=== PATIENT | male | born 1955 | race Caucasian/White ===

== ENCOUNTER 2018-08-25 10:19 | Inpatient (IN) | payer OTHER ==
[~2018-08-25 10:19] MED LIST: LIDOCAINE 2% (SDV) 5 ML INJ; SEVOFLURANE 15 MIN
[2018-08-25] MEDS ORDERED: PROPOFOL 20 ML (12:30)
[2018-08-25] MEDS ORDERED: ROCURONIUM 50 MG INJ (12:31)
[2018-08-25] MEDS ORDERED: NEOSTIGMINE 10 MG INJ (14:33)
[2018-08-25] MEDS ORDERED: GLYCOPYRROLATE 0.4 MG INJ (14:33)
[2018-08-25] MEDS ORDERED: CEFAZOLIN 1 GM INJ (14:34)
[2018-08-25] MEDS ORDERED: DEXTROSE 5%-0.45% NACL 1,000 ML IV (14:38)
[2018-08-25] MEDS ORDERED: hydrALAzine 20 MG INJ IV (15:00)
[2018-08-25] MEDS ORDERED: FENTAnyl 50 MCG/ML VIAL IV ×3 (15:00)
[2018-08-25] MEDS ORDERED: METOCLOPRAMIDE 10 MG INJ IV (15:00)
[2018-08-25] MEDS ORDERED: ALBUTEROL 0.083% (NEB) 2.5 MG/3 ML AMP HHN (15:00)
[2018-08-25] MEDS ORDERED: EPHEDrine SULFATE 50 MG/5 ML SYG IV (15:00)
[2018-08-25] MEDS ORDERED: ONDANSETRON 4 MG INJ IV (15:00)
[2018-08-25] MEDS ORDERED: LABETALOL HCL 20MG INJ IV (15:00)
[2018-08-25] MEDS ORDERED: OXYCODONE/ACETAMINOPHEN (5/325) TAB PO ×2 (15:00)
[2018-08-25] MEDS ORDERED: MEPERIDINE 25 MG INJ IV (15:00)
[2018-08-25] MEDS ORDERED: DIPHENHYDRAMINE 50 MG INJ IV (15:00)
[2018-08-25] MEDS ORDERED: HYDROmorphONE 1 MG/5 ML IV SYRINGE IV ×3 (15:00)
[2018-08-25] MEDS ORDERED: NACL 0.9% 3 ML SYG IV (15:30)
[2018-08-25] MEDS ORDERED: HYDROCODONE/APAP (5/325) TAB PO (15:30)
[2018-08-25] MEDS ORDERED: GLUCOSE GEL 15 GRAM TUBE PO ×2 (16:00)
[2018-08-25] MEDS ORDERED: GLUCOSE GEL 15 GRAM TUBE BUCCAL (16:00)
[2018-08-25] MEDS ORDERED: GLUCAGON 1 MG INJ IM (16:00)
[2018-08-25] MEDS ORDERED: DEXTROSE 50% 50 ML SYRINGE IV ×2 (16:00)
[2018-08-25] MEDS: ACCU-CHEK XX ×2 (17:52→21:00)
[2018-08-25] MEDS: metFORMIN 500 MG TAB PO (17:52)
[2018-08-25] MEDS: ATORVASTATIN 20 MG TAB PO (20:12)
[2018-08-26 05:26] LABS: ADD MAN DIFF? NO; BASOPHILS % 0.3 % (0.0-2.0); EOSINOPHILS # 0.2 10^3/ul (0.0-0.5); EOSINOPHILS % 1.9 % (0.0-7.0); HEMATOCRIT 42.6 % (42.0-52.0); HEMOGLOBIN 14.1 g/dl (14.0-18.0); LYMPHOCYTES # 1.6 10^3/ul (0.8-2.9); LYMPHOCYTES % 15.1 % (15.0-51.0); MEAN CORPUSCULAR HGB CONC 33.1 g/dl (32.0-37.0); MEAN CORPUSCULAR VOLUME 90.6 fl (82.0-101.0); MEAN PLATELET VOLUME 11.1 fl (7.4-10.4); MONOCYTE # 0.7 10^3/ul (0.3-0.9); MONOCYTES % 6.8 % (0.0-11.0); NEUTROPHIL # 7.9 10^3/ul (1.6-7.5); NEUTROPHILS % 75.7 % (39.0-77.0); PLATELET COUNT 160 10^3/UL (140-415)
[2018-08-26 05:26] LABS: WHITE BLOOD COUNT 10.5 10^3/ul (4.8-10.8)
[2018-08-26 05:50] LABS: HEMOGLOBIN A1C 7.3 % (0-5.9)
[2018-08-26 06:06] LABS: ALANINE AMINOTRANSFERASE 27 IU/L (13-69); ALBUMIN 3.6 g/dl (3.3-4.9); ALBUMIN/GLOBULIN RATIO 1.12; ALKALINE PHOSPHATASE 68 IU/L (42-121); ANION GAP 10 (5-13); ASPARTATE AMINO TRANSFERASE 22 IU/L (15-46); BILIRUBIN,INDIRECT 0.5 mg/dl (0-1.1); BILIRUBIN,TOTAL 0.5 mg/dl (0.2-1.3); BLOOD UREA NITROGEN 16 mg/dl (7-20); CALCIUM 8.8 mg/dl (8.4-10.2); CARBON DIOXIDE 27 mmol/L (21-31); CHLORIDE 103 mmol/L (97-110); CREATININE 0.78 mg/dl (0.61-1.24); Estimated GFR > 60 mL/min (>60); GLUCOSE 117 mg/dl (70-220); POTASSIUM 4.2 mmol/L (3.5-5.1); SODIUM 140 mmol/L (135-144); TOTAL PROTEIN 6.8 g/dl (6.1-8.1)
[2018-08-26] MEDS: ACCU-CHEK XX ×2 (07:20→12:30)
[2018-08-26] MEDS: BENAZEPRIL 20 MG TAB PO (09:35)
[2018-08-26] MEDS: metFORMIN 500 MG TAB PO (09:35)
== END 2018-08-26 14:08 | disposition home or self-care (01) | DRG 714 ==
LOC: REC 10:19 → MS1 16:50
PROVIDERS: Urology
PROC: 0VT08ZZ Resection of Prostate, Via Natural or Artificial Opening Endoscopic (ICD-10-PCS; principal; 2018-08-25 12:30)
DX: N40.1 Benign prostatic hyperplasia with lower urinary tract symptoms (principal); I10 Essential (primary) hypertension; E11.9 Type 2 diabetes mellitus without complications
CPT/HCPCS: 80053; 82962; 83036; 85025; 87086; 88305